=== PATIENT | female | born 1940 | race Caucasian/White ===

== ENCOUNTER → 2017-02-03 | Outpatient (CLI) | payer OTHER ==
[~2017-02-03] MED LIST: LIDOCAINE 1% 30 ML SDV ONE; NA BICARBONATE 50 MEQ/50 ML VIAL ONE
== END ==
LOC: FIMAGING 09:00
PROVIDERS: ATTEND Surgery
PROC: 0W9G30Z Drainage of Peritoneal Cavity with Drainage Device, Percutaneous Approach (ICD-10-PCS; principal; 2017-02-03)
DX: M79.81 Nontraumatic hematoma of soft tissue (principal)

== ENCOUNTER → 2017-02-08 | Outpatient (CLI) | payer OTHER | LOC: FIMAGING 13:38 | PROVIDERS: ATTEND Radiology Diagnostic Radiology | DX: M79.81 Nontraumatic hematoma of soft tissue (principal) ==

== ENCOUNTER → 2017-04-22 | Outpatient (CLI) | payer OTHER | LOC: FIMAGING 10:17 | PROVIDERS: ATTEND Surgery | DX: T79.2XXD Traumatic secondary and recurrent hemorrhage and seroma, subsequent encounter (principal) ==

== ENCOUNTER 2017-07-01 05:18 | Inpatient (IN) | payer OTHER ==
--- NOTE | 2017-06-28 16:53 | GHP ---
[f rep st] PREOP HISTORY AND PHYSICAL DATE OF ADMISSION: 07/01/2017 PREOPERATIVE DIAGNOSIS: Intraabdominal seroma. HISTORY OF PRESENT ILLNESS: The patient is a 76-year-old woman who underwent an anterior exposure f or spinal surgery and developed a postoperative intraabdominal seroma. She underwent aspiration by Interventional Radiology with drain placement, but the fluid collection reaccumulated. She recently returned from a long trip to [facility]. She had an ultrasound performed on 04/22/17, which showed the fluid collection to be complex, measuring approximately 9.2 x 5.9 x 10.6 cm inferior to the left kid ginna. The fluid collection continues to grow in size and is uncomfortable for her. She does not hav e any sharp pain. She denies any alleviating or worsening factors. She does not have any fevers or chills or other symptoms of infection. PAST MEDICAL HISTORY: Arthritis, carpal tunnel syndrome, chronic pain, hypertension, heart palpitat ions, shortness of breath, trigger finger. PAST SURGICAL HISTORY: Heart ablation, appendectomy, brain aneurysm repair, D and C, kidney stone e xtraction. ALLERGIES: No known drug allergies. FAMILY HISTORY: Daughter diagnosed with breast cancer at age 37. SOCIAL HISTORY: She reports drinking 3 alcoholic beverages per week. She was a former smoker, quit in 1994. She denies recreational drug use. REVIEW OF SYSTEMS: 10-point review of systems negative aside from HPI. PHYSICAL EXAMINATION: GENERAL: Well-developed, well-nourished, woman in no acute distress. HEENT: Normocephalic, atraumatic. No hearing deficits. Pupils equal and round. No scleral icterus. Mu cous membranes moist. NECK: Trachea midline. RESPIRATORY: Clear to auscultation bilaterally. No increased work of breathing. CARDIOVASCULAR: Regular rate and rhythm. No peripheral edema. ABDO MEN: Palpable mass in the left abdomen. Bowel sounds present. Soft, nondistended, nontender. Pre vious midline incision well healed. SKIN: Warm and dry. PSYCH: Mood and affect normal. NEURO: Grossly intact. IMPRESSION AND PLAN: The patient is a 76-year-old woman who developed an intraabdominal seroma like ly secondary to her anterior exposure surgery. We have attempted percutaneous drainage without succ ess. We will perform laparoscopic, possible open, drainage of the seroma. We are hopeful that this will be an outpatient procedure. We discussed risks of surgery including, but not limited to, hear t attack, stroke, blood clots, or . We discussed risk of infection, bleeding, recurrence, nithin ge to surrounding structures, or need for additional procedures. She understands the risks and woul d like to proceed. The patient was additionally seen by Dr. Fariba Justin, who agrees with the above impression and plan. /[id number]/MODL
[2017-07-01] MEDS ORDERED: ceFAZolin 2 GM/DEXTROSE 100 ML IV ONE (05:46)
[2017-07-01] MEDS ORDERED: LIDOCAINE 1% 2 ML INJ ID PRN (06:04)
[2017-07-01] MEDS ORDERED: LR 1,000 ML IV ONE (06:04)
[2017-07-01 06:49] LABS: ANION GAP 9 mEq/L (8-16); CALCIUM 9.2 mg/dL (8.5-10.4); CARBON DIOXIDE 27 mEq/l (22-31); CHLORIDE 103 mEq/L (97-110); CREATININE 0.7 mg/dL (0.6-1.0); GLOMERULAR FILTRATION RATE > 60; GLUCOSE 92 mg/dL (70-100); POTASSIUM 4.4 mEq/L (3.5-5.2); SODIUM 139 mEq/L (134-144)
--- NOTE | 2017-07-01 06:49 | CPEKG ---
Heart Rate: 66 RR Interval: 909 P-R Interval: 136 QRSD Interval: 126 QT Interval: 460 QTC Interval: 482 P Bonner: 58 QRS Bonner: 56 T Wave Bonner: -31 EKG Severity - ABNORMAL ECG - EKG Impression: SINUS RHYTHM EKG Impression: LEFT BUNDLE BRANCH BLOCK EKG Impression: UNCHANGED IN COMPARISON TO PRIOR Electronically Signed By: Connor Wu 01-Jul-2017 08:47:52
[2017-07-01] MEDS ORDERED: BUPIVACAINE 0.5% 30 ML SDV ONE (06:51)
--- NOTE | 2017-07-01 07:05 | PDANEPAE ---
ANE Past Medical History - Cardiovascular History Hx Hypertension: Yes Hx Arrhythmias: Yes Hx Chest Pain: No Hx Coronary Artery / Peripheral Vascular Disease: No Hx CHF / Valvular Disease: No Hx Palpitations: No Cardiovascular History Comment: pwp syndrome. occ palpitations. cardiac ablation - Pulmonary History Hx COPD: No Hx Asthma/Reactive Airway Disease: No Hx Recent Upper Respiratory Infection: No Hx Oxygen in Use at Home: No Hx Sleep Apnea: No Sleep Apnea Screening Result - Last Documented: Negative - Neurologic History Hx Cerebrovascular Accident: Yes Hx Seizures: No Hx Dementia: No Neurologic History Comment: hx of brain aneurysm 2009. TIA after back surgery 2015ish - Endocrine History Hx Diabetes: No Hypothyroid: No Hyperthyroid: No Obesity: no - Renal History Hx Renal Disorders: No Renal History Comment: hx of kidney stones - Liver History Hx Hepatic Disorders: No - Neurological & Psychiatric Hx Hx Neurological and Psychiatric Disorders: Yes Neurological / Psychiatric History Comment: anxiety - Cancer History Hx Cancer: No - Congenital Disorder History Hx Congenital Disorders: No - GI History Hx Gastrointestinal Disorders: Yes Gastrointestinal History Comment: constipation - Other Health History Other Health History: wears glasses. wears bilateral hearing aides. chronic pain syndrome. carpal tunnel syndrome - Chronic Pain History Chronic Pain: Yes (back pain) - Surgical History Prior Surgeries: abdominal drain placed by ultrasound 02/03/17. spinal fusion 2014. heart ablation in [place] 1994. appy. brain aneurysm repair 2008. D&C x2 1961, 1971. kidney stone extraction. partial hysterectomy ANE Review of Systems - Exercise capacity METS (RN): 3 METS ANE Patient History - Allergies Allergies/Adverse Reactions: No Known Allergies Allergy (Verified 06/30/17 10:51) - Home Medications Home Medications: NIFEdipine ER [Adalat CC 30 mg (*)] 30 mg PO BID 01/13/15 [Last Taken 07/01/17 04:15] Nortriptyline HCl [Pamelor 10 mg (*)] 10 mg PO BID 01/13/15 [Last Taken 04:15] busPIRone [Buspar (*)] 10 mg PO BID 01/13/15 [Last Taken 07/01/17 04:15] Acetamn/Diphenhydramine 500/25 [Tylenol PM (*)] 1 each PO HS PRN 06/29/17 [Last Taken 06/10/17] Folic Acid [Folic Acid 1 MG (*)] 1 mg PO DAILY 06/29/17 [Last Taken 06/28/17] Herbals/Supplements -Info Only 1 ea PO DAILY 06/29/17 [Last Taken 06/28/17] Hydrochlorothiazide [HCTZ (*)] 25 mg PO DAILY 06/29/17 [Last Taken 06/30/17] Irbesartan [Avapro 75 mg (*)] 75 mg PO DAILY 06/29/17 [Last Taken 07/01/17 04:15 ] Metoprolol Tartrate [Lopressor 25 mg (*)] 25 mg PO BID 06/29/17 [Last Taken 04:15] clonazePAM [Klonopin (*)] 0.25 mg PO DAILY 06/29/17 [Last Taken 07/01/17 04:15] clonazePAM [Klonopin (*)] 0.5 mg PO HS 06/29/17 [Last Taken 06/30/17] - NPO status NPO Since - Liquids (Date): 07/01/17 NPO Since - Liquids (Time): 04:15 NPO Since - Solids (Date): 06/30/17 NPO Since - Solids (Time): 19:30 - Anes Hx Anes Hx: post operative cognitive dysfunction - Smoking Hx Smoking Status: Former smoker - Alcohol Use Alcohol Use: Rarely - Family Anes Hx Family Anes Hx: neg - N/A Family Hx Anesthesia Complications: none ANE Labs/Vital Signs - Labs Result Diagrams: 07/01/17 06:24 - Vital Signs Blood Pressure: 119/66 Heart Rate: 70 Respiratory Rate: 16 O2 Sat (%): 95 Height: 157.48 cm Weight: 50.349 kg ANE Physical Exam - Airway Neck exam: FROM Mallampati Score: Class 2 Mouth exam: normal dental/mouth exam - Pulmonary Pulmonary: no respiratory distress, no rales or rhonchi, clear to auscultation - Cardiovascular Cardiovascular: regular rate and rhythym, systolic murmur - ASA Status ASA Status: II ANE Anesthesia Plan Anesthesia Plan: general endotracheal anesthesia
--- NOTE | 2017-07-01 07:10 | PDHPUP ---
History & Physical Update H&P update statement: This history and physical update is based on an assessment of the patient which was completed after admission or registration (within 24 hours), but prior to the surgery/procedure. H&P update: H&P reviewed & patient examined, no change in patient's condition since H&P completed
[2017-07-01] MEDS ORDERED: fentaNYL 100 MCG/2 ML INJ ONE ×2 (07:11→09:44)
[2017-07-01] MEDS ORDERED: ROCURONIUM 50 MG/5 ML VIAL ONE (07:12)
[2017-07-01] MEDS ORDERED: DEXAMETHASONE 4 MG/ML VIAL ONE (07:12)
[2017-07-01] MEDS ORDERED: REMIFENTANIL HCL 1 MG VIAL ONE (07:12)
[2017-07-01] MEDS ORDERED: PROPOFOL/EMULSION 500 MG/50 ML BOTTLE IV ONE (07:12)
[2017-07-01] MEDS ORDERED: KETOROLAC 30 MG/1 ML SDV ONE (07:12)
[2017-07-01] MEDS ORDERED: ONDANSETRON 4 MG/2 ML VIAL ONE (07:12)
[2017-07-01] MEDS ORDERED: LIDOCAINE 2% 5 ML SDV ONE (07:13)
[2017-07-01] MEDS ORDERED: PHENYLEPHRINE HCL 100 MCG/ML SYR ONE (07:13)
[2017-07-01] MEDS ORDERED: ONDANSETRON 4 MG/2 ML VIAL IVP PRN ×2 (07:53→09:38)
[2017-07-01] MEDS ORDERED: LR 500 ML IV PRN (07:53)
[2017-07-01] MEDS ORDERED: OXYCODONE/APAP 5/325 TAB PO PRN (07:53)
[2017-07-01] MEDS ORDERED: NALOXONE HCL 0.4 MG/ML INJ IVP PRN (07:53)
[2017-07-01] MEDS ORDERED: ACETAMINOPHEN 500 MG TAB PO PRN (07:53)
[2017-07-01] MEDS ORDERED: HYDROCODONE/APAP 5/325 TAB PO PRN (07:53)
[2017-07-01] MEDS ORDERED: PROPOFOL 200 MG/20 ML VIAL ONE (08:56)
[2017-07-01] MEDS ORDERED: ONDANSETRON DISINTEGRATING 4 MG TAB PO PRN (09:38)
[2017-07-01] MEDS ORDERED: diphenhydrAMINE 25 MG CAP PO PRN (09:38)
[2017-07-01] MEDS ORDERED: HYDROmorphONE/DILAUDID 1 MG/ML SYR IVP PRN (09:39)
[2017-07-01] MEDS: fentaNYL 100 MCG/2 ML INJ IVP PRN ×2 (09:40→09:51)
--- NOTE | 2017-07-01 09:43 | POSTOPPROG ---
Post Op Note Date of Operation: 07/01/17 Surgeon: Fariba Justin Network Relay Tester: jon Anesthesiologist: margo Anesthesia: GET(General Endotracheal) Pre-op Diagnosis: intra-abd seroma Post-op Diagnosis: same, complex Indication: 76yo F with recurrent intra-abd seroma s/p anterior exposure Procedure: lap drainage and unroofing of seroma, intra-op US by Dr. Roberts Findings: complex seroma of abdominal wall Inf/Abcess present in the surg proc area at time of surgery?: No Depth: Deep Incisional (Fascial) EBL: Minimal Drains: Abdiaziz Mcknight Specimen(s): cyst wall for path cyst contents for micro
--- NOTE | 2017-07-01 10:30 | POSTANESTH ---
Post Anesthetic Evaluation Cardiovascular Status: Normal, Stable Respiratory Status: Normal, Stable Level of Consciousness/Mental Status: Can Participate in Eval Pain Control: Adequate, Prn Tx Ordered Nausea/Vomiting Control: Adequate, Prn Tx Ordered Complications Possibly Related to Anesthesia: None Noted
[2017-07-01] MEDS: HYDROCODONE/APAP 5/325 TAB PO PRN ×3 (13:55→22:09)
[2017-07-01] MEDS ORDERED: LACTULOSE 20 GM/30 ML UDCUP PO PRN (14:28)
[2017-07-01] MEDS ORDERED: BISACODYL 10 MG SUPP PR PRN (14:28)
[2017-07-01] MEDS ORDERED: MAGNESIUM HYDROXIDE 30 ML UDCUP PO PRN (14:28)
[2017-07-01] MEDS ORDERED: POLYETHYLENE GLYCOL 3350 17 GM PKT PO PRN (14:28)
[2017-07-01] MEDS: METOPROLOL TARTRATE 25 MG TAB PO SCH (21:47)
[2017-07-01] MEDS: SENNOSIDES/DOCUSATE SODIUM TAB PO SCH (21:47)
[2017-07-01] MEDS: clonazePAM 0.5 MG TAB PO SCH (21:48)
[2017-07-01] MEDS: NIFEdipine ER 30 MG TAB PO SCH (21:48)
[2017-07-01] MEDS: busPIRone 10 MG TAB PO SCH (21:48)
[2017-07-01] MEDS: NORTRIPTYLINE HCL 10 MG CAP PO SCH (21:48)
--- NOTE | 2017-07-01 21:52 | GOP ---
[f rep st] OPERATIVE REPORT DATE OF OPERATION: 07/01/2017 SURGEON: Fariba Justin MD GLUE MACHINE OPERATOR: GERDA Hui I asked Dr. Rakan Roberts into the operating room to perform an intraoperative ultrasound. ANESTHESIA: General. ANESTHESIOLOGIST: Lesly Bedoya DO PREOPERATIVE DIAGNOSIS: Complex cyst. POSTOPERATIVE DIAGNOSIS: Complex cyst. PROCEDURE PERFORMED: Diagnostic laparoscopy with excision of preperitoneal cyst with intraoperative ultrasound performed by Dr. Roberts FINDINGS: Complex cyst inferior to the kidney and lateral. SPECIMENS: Micro and pathology. ESTIMATED BLOOD LOSS: 20 cc. INDICATIONS: The patient is a 76-year-old woman, who had an anterior plate for spinal surgery. She then developed a cyst. This was attempted to be aspirated but it kept recurring and becoming larger in size. It was painful and so she presented for definitive treatment. DESCRIPTION OF PROCEDURE: The patient was brought into the operating room, placed supine on the table, and general anesthesia was administered. Her abdomen was prepped and draped in the usual sterile fashion. I infiltrated all sites with 0.5% Marcaine prior to making incisions. I made an incision in the left lower quadrant. I elevated it and I inserted the Veress needle. It passed the hanging drop test. Her abdomen insufflated easily to a pressure of 15 mmHg. Under direct vision, I placed a 5 mm suprapubic trocar and a 5 mm trocar located at the umbilicus. I explored her abdomen. There was a slight fullness anterior on the left side. I took down the white line of Toldt and retracted her colon medially. I found a larger bulge inferior to her kidney. I placed an additional 5 mm trocar. I incised an area where there was a bulge and there was complex fatty tissue. There was not a large gush of fluid. I performed an ultrasound and could see a complex fluid collection superficial, but asked my colleague, Dr. Rakan Roberts, to come into the operating room, so that he could perform an intraoperative ultrasound, while I could perform a laparoscopy in order to get the entire collection. I continued to dissect the cystic cavity adn there was necrotic fat mixed with scant fluid in this area. The cystic cavity was complex. I continued to excise the cyst wall as well as the cystic contents. I upsized a trocar in the right lower quadrant, I placed the contents in an EndoCatch bag and retrieved it. It was was submitted for pathology and sent for microbiology. I performed suction irrigation. I examined the cystic space and was satisfied with the dissection. I placed a 15 round silicone drain in the suprapubic trocar and sutured this in with 3-0 nylon. The tip of the drain was located in the cystic cavity. I removed the ports under direct vision and allowed the abdomen to desufflate. I closed the fascia at the 10 mm trocar site with 0 Vicryl. I closed skin with 4-0 Monocryl. Dermabond applied. She was awakened in the operating room, extubated , transferred to PACU in stable condition. /[id number]/MODL MTDD
[2017-07-02 04:56] LABS: % IMMATURE GRANULYOCYTES 0.2 % (0.0-1.1); ABSOLUTE IMMATURE GRANULOCYTES 0.02 10^3/uL (0.00-0.10); ADD DIFF? NO; ADD MORPH? NO; ADD SCAN? NO; ATYPICAL LYMPHOCYTE FLAG 0 (0-99); FRAGMENT RBC FLAG 0 (0-99); HEMATOCRIT 28.9 % (38.0-47.0); HEMOGLOBIN 9.2 g/dL (12.6-16.3); LEFT SHIFT FLG 0 (0-99); LIPEMIA HEMOLYSIS FLAG 80 (0-99); MEAN CELL HEMOGLOBIN 26.8 pg (27.9-34.1); MEAN CELL HEMOGLOBIN CONCENTR. 31.8 g/dL (32.4-36.7); MEAN CELL VOLUME 84.3 fL (81.5-99.8); MEAN PLATELET VOLUME 9.2 fL (8.7-11.7); PLATELET CLUMPS FLAG 0 (0-99); PLATELET COUNT 231 10^3/uL (150-400); RED BLOOD CELL COUNT 3.43 10^6/uL (4.18-5.33); RED CELL DISTRIBUTION WIDTH 18.5 % (11.5-15.2)
--- NOTE | 2017-07-02 08:42 | SOAPPROG ---
STEPHEN Progress Note Assessment/Plan: Assessment/Plan: 76-year-old female postoperative day 1 status post laparoscopic drainage of intra-abdominal seroma - pain appears to be well controlled, will transition to oral narcotics - has not really eaten much, is hesitant to want to eat as she has not had a bowel movement. Started bowel regimen. - needs to get out of bed and walk, will order PT and OT as the patient is 76 - PABLITO is serosanguineous in output of greater than 250. Will likely discharge home with this. - anticipate another day in house, will likely discharge home tomorrow. Patient has no in at home to assist with care 07/02/17 08:40 Subjective: Doing well, wants to eat, wants to have a bowel movement Objective: Vital Signs Temp Pulse Resp BP Pulse Ox 37.5 C 87 20 116/66 92 07/02/17 07:53 07/02/17 07:53 07/02/17 07:53 07/02/17 07:53 07/02/17 07:53 Microbiology 07/01/17 09:00 Mycobacterial Smear (WINTER) - Final Abdomen - Tissue 07/01/17 09:00 Gram Stain - Final Abdomen - Tissue Laboratory Results 07/02/17 04:28 07/01/17 06:24 07/01/17 07/02/17 07/03/17 05:59 05:59 05:59 Intake Total 1240 Output Total 1290 Balance -50 ICD10 Worksheet Patient Problems: Problems Problem Status Onset Diverticulitis Acute TIA (transient ischemic attack) Acute
[2017-07-02] MEDS: METOPROLOL TARTRATE 25 MG TAB PO SCH ×2 (09:09→20:49)
[2017-07-02] MEDS: NORTRIPTYLINE HCL 10 MG CAP PO SCH ×2 (09:09→20:49)
[2017-07-02] MEDS: FOLIC ACID 1 MG TAB PO SCH (09:09)
[2017-07-02] MEDS: NIFEdipine ER 30 MG TAB PO SCH ×2 (09:13→20:48)
[2017-07-02] MEDS: busPIRone 10 MG TAB PO SCH ×2 (09:14→20:49)
[2017-07-02] MEDS: IRBESARTAN 75 MG TAB PO SCH (09:14)
[2017-07-02] MEDS: HYDROCHLOROTHIAZIDE 25 MG TAB PO SCH (09:14)
[2017-07-02] MEDS: clonazePAM 0.5 MG TAB PO SCH ×2 (09:14→20:49)
[2017-07-02] MEDS: SENNOSIDES/DOCUSATE SODIUM TAB PO SCH ×2 (11:08→20:49)
[2017-07-03] MEDS: ACETAMINOPHEN 325 MG TAB PO PRN ×2 (03:42→14:20)
[2017-07-03] MEDS: NORTRIPTYLINE HCL 10 MG CAP PO SCH (08:14)
[2017-07-03] MEDS: SENNOSIDES/DOCUSATE SODIUM TAB PO SCH (08:14)
[2017-07-03] MEDS: METOPROLOL TARTRATE 25 MG TAB PO SCH (08:15)
[2017-07-03] MEDS: HYDROCHLOROTHIAZIDE 25 MG TAB PO SCH (08:15)
[2017-07-03] MEDS: NIFEdipine ER 30 MG TAB PO SCH (08:15)
[2017-07-03] MEDS: busPIRone 10 MG TAB PO SCH (08:15)
[2017-07-03] MEDS: FOLIC ACID 1 MG TAB PO SCH (08:15)
[2017-07-03] MEDS: clonazePAM 0.5 MG TAB PO SCH (08:16)
[2017-07-03] MEDS: IRBESARTAN 75 MG TAB PO SCH (08:16)
--- NOTE | 2017-07-03 09:47 | SOAPPROG ---
STEPHEN Progress Note Assessment/Plan: Assessment/Plan: 76-year-old female postoperative day 1 status post laparoscopic drainage of intra-abdominal seroma - pain controlled - tolerating a diet but hesitant to eat much. - PABLITO is serosanguineous , output has slowed significantly down to 20. Will keep today - has been out of bed walking to the end of the krueger without assistance, if she has robust bowel function today could anticipate discharge today. If continues to have issues likely home tomorrow 07/02/17 08:40 07/03/17 09:46 Subjective: Desperately wants to have a bowel movement Objective: Vital Signs Temp Pulse Resp BP Pulse Ox 36.8 C 85 16 122/62 H 93 07/03/17 07:19 07/03/17 07:19 07/03/17 07:19 07/03/17 07:19 07/03/17 07:19 Microbiology 07/01/17 09:00 Gram Stain - Final Abdomen - Tissue Laboratory Results 07/02/17 04:28 07/01/17 06:24 07/02/17 07/03/17 07/04/17 05:59 05:59 05:59 Intake Total 1240 300 Output Total 1290 2412 Balance -50 -2112 ICD10 Worksheet Patient Problems: Problems Problem Status Onset Diverticulitis Acute TIA (transient ischemic attack) Acute
[2017-07-03 10:48] VITALS: BP 117/65; PULSE 77; RESP 20; TEMP 98.8; O2SAT 94
== END 2017-07-03 16:10 | disposition home or self-care (01) | DRG 358 ==
LOC: F3E 05:18 → OBSVTOIN 07-02 09:58
PROVIDERS: ADMIT Surgery; ATTEND Surgery
PROC: 0WBF4ZZ Excision of Abdominal Wall, Percutaneous Endoscopic Approach (ICD-10-PCS; principal; 2017-07-01 07:15)
DX: K66.8 Other specified disorders of peritoneum (principal); I10 Essential (primary) hypertension; K21.9 Gastro-esophageal reflux disease without esophagitis; G89.29 Other chronic pain; G56.00 Carpal tunnel syndrome, unspecified upper limb; Z87.891 Personal history of nicotine dependence
CPT/HCPCS: 97161-GP; 97165-GO; 97530-GO; G8978-GP-CI; G8979-GP-CI; G8987-GO-CJ; G8988-GO-CI; G8989-GO-CI; J0690; J1100; J1885; J2370; J2405; J2704; J3010

== ENCOUNTER → 2018-08-23 | Outpatient (CLI) | payer OTHER ==
[~2018-08-23] MED LIST changes: +IOPAMIDOL (ISOVUE-300) 100 ML BTL ONE; -LIDOCAINE 1% 30 ML SDV ONE; -NA BICARBONATE 50 MEQ/50 ML VIAL ONE
== END ==
LOC: FIMAGING 09:13
PROVIDERS: ATTEND Physician Assistant
DX: K57.30 Diverticulosis of large intestine without perforation or abscess without bleeding (principal); K44.9 Diaphragmatic hernia without obstruction or gangrene; K87 Disorders of gallbladder, biliary tract and pancreas in diseases classified elsewhere
CPT/HCPCS: 74177; Q9967; 82565-PO

== ENCOUNTER → 2018-10-26 | Outpatient (CLI) | payer OTHER | LOC: BMCIMAGING 08:44 | PROVIDERS: ATTEND Physician Assistant | DX: K80.20 Calculus of gallbladder without cholecystitis without obstruction (principal); K76.0 Fatty (change of) liver, not elsewhere classified; I70.0 Atherosclerosis of aorta ==